=== PATIENT | male | born 2000 | race Caucasian/White ===

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

== ENCOUNTER 2020-10-24 02:38 | Emergency (ER) | payer OTHER, SELFPAY | END 2020-10-24 03:14 | disposition home or self-care (01) | LOC: MADERS 02:38 | DX: R41.82 Altered mental status, unspecified (principal); R42 Dizziness and giddiness; F17.290 Nicotine dependence, other tobacco product, uncomplicated; I10 Essential (primary) hypertension | CPT/HCPCS: 99284 ==